=== PATIENT | female | born 2000 | race Two or more races ===

== ENCOUNTER 2024-05-09 18:16 | Observation (INO) | payer MEDICAID, SELFPAY ==
[2024-05-09 18:22] VITALS: BP 114/79; PULSE 75; RESP 16; RESP 99; TEMP 37.2; BMI 28.2
[2024-05-09 18:33] VITALS: BP 116/79; PULSE 75
--- NOTE | 2024-05-09 19:06 | XR_ITS ---
Examination: Complete OB ultrasound greater than 14 weeks Date and time of exam: May 09, 2024 1947 hrs. Indications: Onset pelvic pain back pain beginning last night Findings: Viable intrauterine single fetus with single amniotic sac presentation cephalic spine maternal right Cardiac motion 155 BPM Placenta posterior grade 2 Umbilical cord insertion 3 vessel seen Amniotic fluid index 16.9 cm Cervix 3.6 cm Right ovary obscured by bowel gas Left ovary 3.7 x 1.5 x 3.8 cm arterial flow. Composite estimated gestational age based on BPD, head circumference, abdominal circumference, femur length is 26 weeks 5 days Estimated weight 890 g. Survey of intracranial anatomy, spinal anatomy, abdominal anatomy, four-chamber heart performed with no abnormalities identified. Impression: Viable intrauterine gestation cephalic presentation.
[2024-05-09] MEDS: RINGERS LACTATED 1000 ML 1,000 ML 999 ML IV (19:15)
--- NOTE | 2024-05-09 19:36 | XR_ITS ---
Examination: OB Transvaginal ultrasound of the pelvis, Limited Technique: Transvaginal sonographic images pelvis performed using burnett scale imaging Exam date and time: May 09, 2024 2004 hrs. Indications: Labor evaluation, pelvic pain back pain, unknown cervical length Findings: Cervix 4.4 cm closed Impression: Cervix 4.4 cm closed.
[2024-05-09 19:37] VITALS: BP 128/83; PULSE 75
--- NOTE | 2024-05-09 19:37 | ESHP_ITS ---
Documentation for date of: 05/09/24 OB Labor/Induct. HPI History of Present Illness History of present illness: 23 yo at 25+5 (KIMO 08/14/2024) presents with painful contracts and back pain. complicated by: 1) Hyperthyroidism, well controlled not on medications Patient started having painful contractions today. No precipitating factors. No LOF, VB. Good movement. No other complications in this . No s/s of PEC. History of Present Adequate Care: Yes Review of Systems Review of Systems Narrative Review of Systems: Negative except noted above Past Medical History Surgical History OTHER SURGICAL HX: History of thyroid biopsy, benign Meds Home Medications and Allergies Allergies Allergy/AdvReac Type Severity Reaction Status Date / Time albuterol Allergy Wheezing Verified 02/21/20 19:11 OB Exam Physical Exam Vital signs: Temp Pulse Resp BP 99.0 F 75 16 116/79 05/09/24 18:22 05/09/24 18:33 05/09/24 18:22 05/09/24 18:33 Narrative: GEN: NAD RESP: Normal work of breathing ABD: Gravid, non tender EXT: no swelling or pain BSUS :cephalic normal DVP EFW 890g c/w 25w3d SVE: 1cm/50%/high FHT: Category 1 [place]: q5-10 minutes OB Assessment & Plan Assessment and Plan (1) labor in second trimester: Status: Acute (2) Hyperthyroidism: Status: Acute Additional Plan Additional Plan Comment: Concern for labor given cervical exam and contractions - Transfer to [facility] for L3 NICU given gestational age. At this time, she appears stable and not imminently delivering. However, I am concerned about her cervical exam given her nulliparity and gestational age and would recommend at least 24 hours observation to monitor for cervical change and labor. - BMTZ #1 for lung maturity - mag 6/2g for neuroprotection - ampicillin for GBS prophylaxis - indomethacin for tocolysis through steroid window, sucralfate - other routine PTL labs: UA/urine culture, GC/CT, utox - cephalic presentation, patient conseted for CD, blood transfusion and possible classical CS. understands risks, benefits, indications Hyperthyroidism: well controlled, asymptomatic, normal VS FWB: continuous monitoring, cephalic, EFW 890g, normal for GA/no FGR VTE PPX: none (1) labor in second trimester Qualifiers: labor delivery status: without delivery Qualified Code(s): O60.02 - labor without delivery, second trimester
--- NOTE | 2024-05-09 19:48 | ESDS_ITS ---
Transfer Discharge Sum: Prov Provider Date of admission: 05/09/24 18:16 Primary care physician: Physician No Primary/Family DS: Diagnosis Discharge Diagnosis (1) labor in second trimester: Status: Acute (2) Hyperthyroidism: Status: Acute (3) Abdominal pain: Status: Acute Problem List Completed Was Problem List Reviewed/Reconciled?: Yes Transfer Discharge Sum: Hosp Hospital Course Hospital course: Ms. CAMPBELL is a 23 year old at 25+5 presenting with concern for labor. is notable for well controlled hyperthyroidism (not on medications). She had one day of painful contractions and back pain and presented to triage. She was found to have contractions by palpation and on tocometry (every 5-10 minutes) that were painful. SVE 1cm. BSUS showed cephalic position, 890g (c/w 25+3), normal DVP. Given her cervical dilation and painful contractions, there was concern for labor. She was started on IVF with bolus, BMTZ for lung maturity, mag for neuroprotection, indomethacin for tocolysis through the steroid window, ampicillin for GBS prophylaxis in labor. Given her gestational age and non imminent delivery, she was recommended for transfer to higher level of care. Appropriate communication was made from our L&D to accepting unit. Patient was stable at 1cm on recheck. She was noted to have leaking of fluid and Amnisure test was negative. She as stable at the time of transfer from our facility with normal vital signs and reassuring FHT and no signs of imminent delivery en route. Time Spent with Patient Time attestation: Total time spent providing and/or coordinating transfer services: 60 min Exam Vital Signs Temp Pulse Resp BP 99.0 F 75 16 128/83 05/09/24 18:22 05/09/24 19:37 05/09/24 18:22 05/09/24 19:37 Narrative Exam Narrative: Gen: NAD RESP normal work of breathing ABD: gravid, non tender SVE: 1cm, unchanged over 2 exams Transfer Discharge Sum: Data Data Completed and Pending Completed studies during hospitalization: Examination: Complete OB ultrasound greater than 14 weeks Date and time of exam: May 09, 2024 1947 hrs. Indications: Onset pelvic pain back pain beginning last night Findings: Viable intrauterine single fetus with single amniotic sac presentation cephalic spine maternal right Cardiac motion 155 BPM Placenta posterior grade 2 Umbilical cord insertion 3 vessel seen Amniotic fluid index 16.9 cm Cervix 3.6 cm Right ovary obscured by bowel gas Left ovary 3.7 x 1.5 x 3.8 cm arterial flow. Composite estimated gestational age based on BPD, head circumference, abdominal circumference, femur length is 26 weeks 5 days Estimated weight 890 g. Survey of intracranial anatomy, spinal anatomy, abdominal anatomy, four-chamber heart performed with no abnormalities identified. Impression: Viable intrauterine gestation cephalic presentation. OB Transvaginal ultrasound of the pelvis, Limited Technique: Transvaginal sonographic images pelvis performed using burnett scale imaging Exam date and time: May 09, 20242003 hrs. Indications: Labor evaluation, pelvic pain back pain, unknown cervical length Findings: Cervix 4.4 cm closed Impression: Cervix 4.4 cm closed. Discharge Plan Problem List Was Problem List Reviewed/Reconciled?: Yes Plan Patient Disposition: [facility] Facility Pt Being Transferred to: Other-Specify in comment Service Needed for Transfer: Obstetrics Disposition Comment: [facility] Robert Patient condition on transfer: Stable Prescriptions/Referrals Prescriptions/Med Rec: No Action Vitamin 27 mg iron- 800 mcg tablet 1 tab PO DAILY Patient Comments: take 1 tablet by mouth once daily Referrals: No Primary/Family,Physician [Primary Care Provider] - Patient/Caregiver Discharge Instructions Print Language: Rwandan Stand Alone Forms: Kya Award Info., Patient Portal Info Letter Discharge Order Discharge Orders: Discharge (Routine); Ordered 05/09/24 Ordered By: Marli Ruvalcaba (1) labor in second trimester Qualifiers: labor delivery status: without delivery Qualified Code(s): O60.02 - labor without delivery, second trimester
[2024-05-09] MEDS: Magnesium Sulfate 4 GM Ivpb 4 GM/50 ML BAG IV (20:05)
[2024-05-09] MEDS: BETAMET ACET/BETAMET NA PH (Celestone) 6 MG/ML VIAL 12 MG IM (20:07)
[2024-05-09 20:08] LABS: Basophils % (Auto) 0 % (0-2.5); Eosinophils # (Auto) 0.1 Thou/mm3 (0.0-0.5); Eosinophils % (Auto) 1 % (0-10); Hematocrit 34.7 % (36.0-46.0); Hemoglobin 12.5 g/dL (12.0-16.0); Immature Granulocytes % (Auto) 0 % (0-0); Immature Granulocytes Auto 0.04 Thou/mm3 (0.00-0.00); Lymphocytes # (Auto) 1.6 Thou/mm3 (1.0-4.8); Lymphocytes % (Auto) 15 % (10-50); Mean Corpuscular Hemoglobin 32.8 pg (25.0-35.0); Mean Corpuscular Volume 91 fL (80-100); Monocytes # (Auto) 0.8 Thou/mm3 (0.0-0.8); Monocytes % (Auto) 8 % (0-12); Neutrophils % (Auto) 76 % (37-80); Nucleated Red Blood Cell % 0 /100 WBC (0); Platelet Count 209 Thou/mm3 (140-440); RDW Standard Deviation 40.3 fL (36.4-46.3); Red Blood Count 3.81 Miln/mm3 (4.00-5.20); White Blood Count 10.6 Thou/mm3 (3.6-11.0)
[2024-05-09 20:28] VITALS: BP 128/80; PULSE 85
[2024-05-09] MEDS: Magnesium Sulfate 2 GM Ivpb 2 GM/50 ML BAG IV (20:31)
[2024-05-09 20:33] VITALS: BP 123/82; PULSE 91
[2024-05-09 20:41] LABS: Collection Type, Urine Clean Catch; RBC,Urine 0 /hpf (0-3)
[2024-05-09] MEDS: Ampicillin Inj 2,000 MG in SODIUM CHLORIDE 0.9% (P) 100 ML 200 MG IV (20:41)
[2024-05-09] MEDS: MAGNESIUM SULF 20 GM IVPB 20 GM/500 ML BAG IV (20:44)
[2024-05-09 20:47] LABS: ROM Kit Lot # 57809118; ROM Swab Mixed By: CHADO; Swb Mxed in Solvent 1 min? Yes
[2024-05-09 20:48] LABS: Rupture of Fetal Membranes Negative (Negative)
[2024-05-09 20:57] LABS: Bacteria,Urine Rare; Bilirubin,Urine Negative (Negative); Blood,Urine Negative (Negative); Clarity,Urine Clear (Clear/Hazy); Color,Urine Lt-Yellow (Lt Yel-Yel); Glucose, Urine Negative (Negative); Ketones,Urine Negative (Negative); Leukocyte Esterase,Urine Positive (Negative); Nitrite,Urine Negative (Negative); PH,Urine 6.5 (5.0-7.0); Protein,Urine Negative (Neg - Trace); Specific Gravity,Urine 1.007 (1.001-1.035); Squamous Epithelial Cell,Urine 1 /hpf (0-5); Urobilinogen,Urine Negative mg/dL (0.0-1.0); WBC,Urine 4 /hpf (0-5)
[2024-05-09 21:03] VITALS: BP 130/82; PULSE 91
[2024-05-09 23:10] LABS: Syphilis Nonreactive (Nonreactive)
== END 2024-05-09 21:22 | disposition short-term general hospital (02) ==
PROVIDERS: Admitting Provider Obstetrics & Gynecology; Visit Provider Obstetrics & Gynecology
DX: O60.02 Preterm labor without delivery, second trimester (principal); O99.282 Endocrine, nutritional and metabolic diseases complicating pregnancy, second trimester; E05.90 Thyrotoxicosis, unspecified without thyrotoxic crisis or storm; Z3A.26 26 weeks gestation of pregnancy
CPT/HCPCS: 36415; 59899; 76805; 76817; 81001; 84112; 85025; 86780; 86850; 86900; 86901; 96372; J0290; J0702; J3475; J7120

== ENCOUNTER 2024-08-11 15:12 | Observation (INO) | payer MEDICAID, SELFPAY ==
[2024-08-11 15:18] VITALS: BMI 30.7
[2024-08-11 15:26] VITALS: BP 119/72; PULSE 102; RESP 16; TEMP 36.7; O2SAT 98
[2024-08-11 15:36] VITALS: BP 119/72; PULSE 102; RESP 16; TEMP 36.7
[2024-08-11 16:27] VITALS: BP 126/76; PULSE 90
== END 2024-08-11 17:10 | disposition home or self-care (01) ==
PROVIDERS: Admitting Provider Nurse Practitioner Women's Health; PCP Nurse Practitioner Women's Health; Visit Provider Nurse Practitioner Women's Health
DX: O47.1 False labor at or after 37 completed weeks of gestation (principal); Z3A.39 39 weeks gestation of pregnancy
CPT/HCPCS: 59025; 59899

== ENCOUNTER 2024-08-14 18:28 | Observation (INO) | payer MEDICAID, SELFPAY ==
[2024-08-14 18:30] VITALS: BMI 30.6
[2024-08-14 18:36] VITALS: RESP 16; RESP 99; TEMP 36.9
[2024-08-14 18:42] VITALS: BP 108/72; PULSE 104
[2024-08-14 18:45] VITALS: TEMP 36.9
== END 2024-08-14 19:30 | disposition home or self-care (01) ==
PROVIDERS: Admitting Provider Specialist; Visit Provider Specialist
DX: O47.1 False labor at or after 37 completed weeks of gestation (principal); Z3A.39 39 weeks gestation of pregnancy
CPT/HCPCS: 59025; 59899; G0378

== ENCOUNTER 2024-08-22 13:17 | Inpatient (IN) | payer MEDICAID, SELFPAY ==
[2024-08-22 13:17] VITALS: BP 103/68; PULSE 78; RESP 18; RESP 99; TEMP 36.9
[2024-08-22 13:31] VITALS: BP 103/68; PULSE 78
[2024-08-22 13:37] VITALS: BMI 30.5
--- NOTE | 2024-08-22 14:06 | XR_ITS ---
Examination: Complete OB ultrasound greater than 14 weeks Date and time of exam: August 22, 2024 1438 hours INDICATIONS: Patient in full-term labor today Findings: Viable intrauterine single fetus with single amniotic sac presentation Vertex spine maternal left Placenta right lateral grade 3 placental calcifications. Umbilical cord insertion seen Amniotic fluid index 5.2 cm Cervix ovary is obscured by bowel gas Composite estimated gestational age based on BPD, head circumference, abdominal circumference, femur length is 38 weeks 2 days Estimated weight 3452.7 g. Survey of intracranial anatomy, spinal anatomy, abdominal anatomy, four-chamber heart performed with no abnormalities identified. Impression: Viable intrauterine gestation vertex presentation Estimated gestational age 38 weeks 2 days Estimated weight 3452.7 g.
[2024-08-22 14:23] VITALS: BP 115/76; PULSE 75
[2024-08-22 14:51] LABS: Basophils # (Auto) 0.1 Thou/mm3 (0.0-0.2); Basophils % (Auto) 1 % (0-2.5); Eosinophils % (Auto) 0 % (0-10); Hematocrit 41.2 % (36.0-46.0); Hemoglobin 14.9 g/dL (12.0-16.0); Immature Granulocytes % (Auto) 1 % (0-0); Lymphocytes # (Auto) 1.3 Thou/mm3 (1.0-4.8); Lymphocytes % (Auto) 12 % (10-50); Mean Corpuscular HGB Conc 36.2 g/dl (31.0-37.0); Mean Corpuscular Hemoglobin 32.7 pg (25.0-35.0); Mean Corpuscular Volume 91 fL (80-100); Monocytes # (Auto) 0.7 Thou/mm3 (0.0-0.8); Monocytes % (Auto) 7 % (0-12); Neutrophils # (Auto) 8.6 Thou/mm3 (1.8-7.7); Neutrophils % (Auto) 80 % (37-80); Nucleated Red Blood Cell % 0 /100 WBC (0); Platelet Count 208 Thou/mm3 (140-440); Red Blood Count 4.55 Miln/mm3 (4.00-5.20); White Blood Count 10.8 Thou/mm3 (3.6-11.0)
[2024-08-22 15:40] VITALS: BP 110/70; PULSE 78; RESP 18; TEMP 37.1
[2024-08-22 15:43] LABS: Syphilis Nonreactive (Nonreactive)
[2024-08-22] MEDS: DINOPROSTONE 10 MG VAG.SUPP VAGINAL (16:20)
[2024-08-22 16:53] LABS: Amphetamine/Metham Scrn,Ur OB Negative (Negative); Benzoylecgonine Screen, Ur OB Negative (Negative); Opiate Screen,Urine OB Negative (Negative); THC Screen,Urine OB Negative (Negative)
[2024-08-22 19:23] VITALS: BP 125/72; PULSE 82; TEMP 36.8
--- NOTE | 2024-08-22 19:37 | PD.LDHP ---
Documentation for date of: 08/22/24 OB Labor/Induct. HPI History of Present Illness Chief complaint: contractions : 1 Para: 0 Term pregnancies: 0 pregnancies: 0 Living children: 0 History of Abortions: Spontaneous and Elective: 0 History of Vaginal deliveries: 0 History of sections: No History of : No Date of last menstrual period: 08/07/24 KIMO: 08/14/24 Gestational Age (weeks): 40 Gestational Age (days): 5 Gestational age based on last menstrual period: 2 History of present illness: 23-year-old 1 para 0 admit to labor and delivery with contractions that were strong since 10 in the morning. [facility] First visit 8 weeks. Last. November 07, 2023. Estimated due date August 14, 2024. Patient has had several ultrasounds at [facility] with maternal- medicine and normal anatomy was shown. Patient patient has a previous admission at 28 weeks with labor. History of hyperthyroid. Patient had also had a thyroid biopsy 2 years ago that was negative. Patient has not taken any thyroid medication during the . She reports that when she was started on levothyroxine and to other medication she had an allergic reaction and so she did not take it. No social habits. Surgery significant for thyroid biopsy. Patient is O+, antibody screen negative, RPR nonreactive, rubella immune, hepatitis B negative, hep C negative, HIV negative, GC and Chlamydia were negative. 1 hour Glucola was negative. She had a negative drug screen. GBS is negative. She had a negative NIPT, AFP was negative. Carrier screens negative History of Present Dating criteria: LMP confirmed by 1st trimester US Adequate Care: Yes Ultrasounds: normal 1st trimester US and normal mid trimester US Obstetrical complications: none Medical complications: other (hyperthyroid) Labs Labs: Negative: Hepatitis B, HIV, Chlamydia, Gonorrhea and Group Beta Strep Review of Systems Review of Systems Systems Reviewed: All systems reviewed, normal except as documented Past Medical History Surgical History SURGICAL: Negative Section Meds Home Medications and Allergies Home Medications ?Medication ?Instructions ?Recorded ?Confirmed ?Type vits no.130-ferrous fum 1 tab PO DAILY 05/09/24 08/22/24 History 27 mg iron-folic acid 800 mcg tablet ( Vitamin) Allergies Allergy/AdvReac Type Severity Reaction Status Date / Time albuterol Allergy Wheezing Verified 08/22/24 13:39 OB Exam Physical Exam Vital signs: Temp Pulse Resp BP 98.8 F 82 18 125/72 08/22/24 15:40 08/22/24 19:23 08/22/24 15:40 08/22/24 19:23 Narrative: Alert and oriented. Normal heart rate and rhythm. Lungs are clear. Gravid abdomen. Gynecoid pelvis. Estimated weight 3400 g. On ultrasound today presentation was vertex. INDERJIT was 5.2. Grade 3 placenta with calcifications. heart rate on admission category 1 with accelerations and moderate variability and contractions about every 5 minutes Detailed Labor and Delivery Exam Dilation (cm): 2 Effacement (%): thick Cervix position: posterior station: -3 Consistency: medium Presentation: Vertex Cervical ripeness score: 2 Membranes: intact Baseline heart rate: 145 monitor accelerations: 15x15 monitor decelerations: Variable (x1 and 1 late) FPC variability: Moderate (11-25) Contraction frequency (min): 4-5 Contraction duration (sec): 30 Tachysystole: No Contraction intensity: Mild OB Results Labs 08/22/24 14:11 Labs: Short CBC 08/22/24 Range/Units 14:11 WBC 10.8 (3.6-11.0) Thou/mm3 Hgb 14.9 (12.0-16.0) g/dL Hct 41.2 (36.0-46.0) % Plt Count 208 (140-440) Thou/mm3 OB Assessment & Plan Assessment and Plan (1) Normal labor and delivery: Status: Acute Additional Plan Induction method: other (cervidel) Plan: induction, anticipate NVD and consult MD farrar
[2024-08-22 21:12] VITALS: BP 129/84; PULSE 86
[2024-08-22] MEDS: PROMETHAZINE INJ 25 MG/ML VIAL 12.5 MG IM (21:37)
[2024-08-22] MEDS: MEPERIDINE INJ 50 MG/ML VIAL IM (21:37)
[2024-08-23] VITALS (178 sets, daily range): BP systolic 99–145; BP diastolic 55–92; PULSE 78–167; RESP 18–22; TEMP 3–39.1; O2SAT 89–100
--- NOTE | 2024-08-23 07:35 | PD.LDPN ---
Documentation for date of: 08/23/24 OB Labor Progress Note Pain Control Pain control: epidural Pelvic Exam Dilation (cm): 9 Effacement (%): 90% station: -1 Amniotic membrane status: Ruptured Contractions Contraction frequency: 3 Contraction intensity: Moderate Status status: Category ll Assessment and Plan Assessment: active labor Plan OB labor note: continuous present management
--- NOTE | 2024-08-23 08:17 | PD.LDPN ---
Documentation for date of: 08/23/24 OB Labor Progress Note Pain Control Pain control: epidural Pelvic Exam Dilation (cm): 9.5 Effacement (%): 90% station: -1 Amniotic membrane status: Ruptured Contractions Monitor mode: External Contraction frequency: 2-3 Contraction duration: 40-60 Contraction phase: Contraction Contraction intensity: Moderate Status status: Category ll Assessment and Plan Assessment: active labor Plan OB labor note: continuous present management Comments: Pt is almost complete, comfortable with the epidural Allow pt to labor down Anticipate
[2024-08-23] MEDS: RINGERS LACTATED 500 ML 500 ML 999 ML IV (09:55)
--- NOTE | 2024-08-23 10:22 | PD.LDPN ---
Documentation for date of: 08/23/24 OB Labor Progress Note Pelvic Exam Dilation (cm): 10 Effacement (%): 100 station: +1 Amniotic membrane status: Ruptured Contractions Monitor mode: External Contraction frequency: 2-3 Contraction duration: 40-60 Contraction phase: Contraction Contraction intensity: Moderate Status status: Category ll Assessment and Plan Assessment: other (2nd stage ) Plan OB labor note: continuous present management Comments: Test pushed with pt she did well, RN to push with her CNM on the unit awaiting delivery Anticipate
[2024-08-23] MEDS: MINERAL OIL 30 ML UDC TOP (10:45)
[2024-08-23] MEDS: OXYTOCIN in NS 20 units 20 UNIT/1,000 ML BAG 999 UNIT IV (11:05)
--- NOTE | 2024-08-23 11:23 | PD.LDDELS ---
Data (Jimenez) Data Hx Section: No Maternal Blood Type: O Pos Rubella Titre: Positive RPR: Non-reactive Labs: Negative: RPR, Hepatitis B, HIV, Chlamydia, Gonorrhea and Group Beta Strep and Unknown: Herpes Type 1 and Herpes Type 2 : 1 Para: 0 Term: 0 : 0 Livin : 0 Delivery Data (Jimenez) Labor Data Stimulated/Augmented: No Induction: No ROM Date: 08/23/24 ROM Time: 06:05 Rupture Type: SROM Amniotic Fluid: Clear Delivery Data EDC: 08/14/24 EDC calculated by:: LMP/early US confirmation Labor Onset Stage 1 Date: 08/23/24 Labor Onset Stage 1 Time: 03:22 Labor Onset Stage 2 Date: 08/23/24 Labor Onset Stage 2 Time: 06:05 Delivery Date: 08/23/24 Delivery Time: 10:57 Gestational age (weeks): 41 Gestational age (days): 2 Placenta Delivery Date: 08/23/24 Placenta Delivery Time: 11:02 Delivered by: Aura Prince Delivery nurse: Dia Carcamo Research And Development Director at delivery: No Support person(s) at delivery: FOB Other staff at delivery: Nursery Nurse Other staff at delivery: Beth Goncalves Delivery Method Delivery: Vaginal Delivery Type: Spontaneous Presentation: Vertex Position: OA Anesthesia Type Primary Anesthesia: Epidural Delivery Room Medications Other Intrapartum Medications: No Placenta Placenta Delivery: Spontaneous Placenta Cultures Obtained: No Placenta Sent for Examination: No Cord Sample: Cord Blood Obtained Episiotomy Episiotomy: None Lacerations #1: Vaginal: 1st degree Labial: left Perineal repair Sutures used for repair: 3.0 Vicryl (CT) and 4.0 Vicryl (SH) EBL Estimated blood loss (ml): 300 Umbilical Cord Umbilical Vessels: 3 Nuchal Cord: x1 Loosely Body Cord: Not Applicable Additional Procedures Patient pushed for about 30 minutes and had an of a viable male delivered. head delivered with a loose nuchal cord easily reduced after delivery. The anterior shoulder delivered with gentle downward traction subsequent deliver the posterior shoulder and the body without complications. Infant placed on mother's abdomen. Vigorous cry upon delivery. Delayed cord clamping for about 2 minutes and then cord was clamped and cut by FOB. Cord blood obtained. Three-vessel cord noted. Placenta expelled spontaneously and intact. Patient sustained a vaginal laceration that was repaired using a 3-[address] suture and she had a left labial laceration which was repaired using a 4-0 Vicryl on an SH suture. Perineum intact. Excellent hemostasis achieved after vigorous fundal massage and removal of clots from the posterior fornix. EBL 300. Mother and baby stable, skin to skin and bonding in LDR. [place] Data (Jimenez) [place] Data Infant Gender: Male Weight Grams: 3600 1 Minute Total: 9 5 Minute Total: 9
[2024-08-23] MEDS: TRANEXAMIC ACID 1,000 MG IVPB 1,000 MG/100 ML BAG 200 MG IV (11:35)
[2024-08-23] MEDS: ACETAMINOPHEN IVPB 1,000 MG/100 ML VIAL 250 MG IV (12:23)
[2024-08-23] MEDS: Ampicillin Inj 2,000 MG in SODIUM CHLORIDE 0.9% (POP) 100 ML 100 MG IV ×3 (12:24→23:58)
[2024-08-23] MEDS: CLINDAMYCIN 900MG IVPB 50 ML 100 MG IV ×2 (14:20→21:57)
[2024-08-23] MEDS: IBUPROFEN TAB 400 MG TABLET 800 MG PO (15:06)
--- NOTE | 2024-08-23 16:11 | EKG_ITS ---
[facility] Test Date: 2024-08-23 Pat Name: DONTAE CAMPBELL Department: Room: S464A Gender: Female Manager Of Creative Services: ANDI : 2000 Requested By: Aura Prince Order Number: [id number] Reading MD: Aura Prince Measurements Intervals [place] Rate: 79 P: 34 CO: 131 QRS: 20 QRSD: 96 T: 11 QT: 337 QTc: 386 Interpretive Statements SINUS RHYTHM LOW QRS VOLTAGE IN PRECORDIAL LEADS INCOMPLETE RIGHT BUNDLE BRANCH BLOCK No previous ECG available for comparison /[id number]/[email or web address]/[id number].pdf
--- NOTE | 2024-08-23 16:11 | XR_ITS ---
Examination: PA lateral chest 2 views TECHNIQUE: Upright PA and lateral chest 2 views Exam date and time: August 23, 2024 at 1745 hours INDICATIONS: Chest tightness today. FINDINGS: Normal heart size Lungs are clear. The osseous structures are intact IMPRESSION: No active disease
--- NOTE | 2024-08-23 16:18 | PC.NURSE ---
1610 Called SHANNON Chavarria to inform her of patient's recent vitals, HR 157 with complaint of chest tightness. Pt BP 124/75, temp 98.4, o2 99%, pain 0. Fundus firm, midline, scant bleeding. Aura ordered chest xray, ekg, and gent pharmacy to dose.
--- NOTE | 2024-08-23 17:48 | PC.NURSE ---
1250 Pt up to bathroom without difficulty. While pt sitting on toilet, tape removed from back. Epidural tubing removed from pt back. catheter intact, dark tip shown to pt. Pressure applied No bleeding or problems noted
[2024-08-23] MEDS: GENTAMICIN/NS 120 MG IVPB 120 MG/100 ML BAG 200 MG IV ×3 (17:52→20:18)
[2024-08-23 18:09] LABS: Basophils % (Auto) 0 % (0-2.5); Eosinophils % (Auto) 0 % (0-10); Hematocrit 32.8 % (36.0-46.0); Hemoglobin 11.6 g/dL (12.0-16.0); Immature Granulocytes % (Auto) 1 % (0-0); Immature Granulocytes Auto 0.11 Thou/mm3 (0.00-0.00); Lymphocytes # (Auto) 1.2 Thou/mm3 (1.0-4.8); Lymphocytes % (Auto) 7 % (10-50); Mean Corpuscular HGB Conc 35.4 g/dl (31.0-37.0); Mean Corpuscular Hemoglobin 32.6 pg (25.0-35.0); Mean Corpuscular Volume 92 fL (80-100); Monocytes # (Auto) 1.7 Thou/mm3 (0.0-0.8); Monocytes % (Auto) 9 % (0-12); Neutrophils # (Auto) 14.9 Thou/mm3 (1.8-7.7); Neutrophils % (Auto) 83 % (37-80); Nucleated Red Blood Cell % 0 /100 WBC (0); Platelet Count 171 Thou/mm3 (140-440); RDW Standard Deviation 42.9 fL (36.4-46.3); Red Blood Count 3.56 Miln/mm3 (4.00-5.20); White Blood Count 17.9 Thou/mm3 (3.6-11.0)
[2024-08-24] VITALS: BP 114/75; PULSE 91; RESP 18; TEMP 36.6; O2SAT 98
[2024-08-24 01:54] LABS: Basophils % (Auto) 0 % (0-2.5); Eosinophils # (Auto) 0.1 Thou/mm3 (0.0-0.5); Eosinophils % (Auto) 0 % (0-10); Hematocrit 31.5 % (36.0-46.0); Hemoglobin 11.2 g/dL (12.0-16.0); Immature Granulocytes % (Auto) 1 % (0-0); Immature Granulocytes Auto 0.07 Thou/mm3 (0.00-0.00); Lymphocytes # (Auto) 1.6 Thou/mm3 (1.0-4.8); Lymphocytes % (Auto) 11 % (10-50); Mean Corpuscular HGB Conc 35.6 g/dl (31.0-37.0); Mean Corpuscular Hemoglobin 33.4 pg (25.0-35.0); Mean Corpuscular Volume 94 fL (80-100); Monocytes # (Auto) 1.1 Thou/mm3 (0.0-0.8); Monocytes % (Auto) 8 % (0-12); Neutrophils # (Auto) 11.6 Thou/mm3 (1.8-7.7); Neutrophils % (Auto) 80 % (37-80); Nucleated Red Blood Cell % 0 /100 WBC (0); Platelet Count 153 Thou/mm3 (140-440); RDW Standard Deviation 44.5 fL (36.4-46.3); Red Blood Count 3.35 Miln/mm3 (4.00-5.20); White Blood Count 14.5 Thou/mm3 (3.6-11.0)
[2024-08-24 03:48] VITALS: BP 104/66; PULSE 93; RESP 16; TEMP 36.6; O2SAT 97
[2024-08-24] MEDS: CLINDAMYCIN 900MG IVPB 50 ML 100 MG IV (05:35)
[2024-08-24] MEDS: Ampicillin Inj 2,000 MG in SODIUM CHLORIDE 0.9% (POP) 100 ML 100 MG IV (06:12)
--- NOTE | 2024-08-24 07:14 | ESDS_ITS ---
DS: Providers Provider Date of admission: 08/22/24 14:01 Primary care physician: Physician No Primary/Family Admitting Provider: Peewee Castillo MD Attending Provider on Admission: Edwin Chiu MD Consults: 08/23/24 14:41 Referral Routine Comment: Attending Provider on DC: Aura Prince CNM Discharging Provider: Aura Prince CNM Anticipated date of discharge: 08/24/24 DS: Diagnosis Discharge Diagnosis (1) Normal spontaneous vaginal delivery: Status: Acute (2) Encounter for care of lactating mother: Status: Acute (3) Normal labor: Status: Acute Problem List Completed Was Problem List Reviewed/Reconciled?: Yes Summary/Hosp Course Brief History: 23-year-old 1 para 0 admit to labor and delivery with contractions that were strong since 10 in the morning. Patient has been followed at [facility]. First visit 8 weeks. Last. November 07, 2023. Estimated due date August 14, 2024. Patient has had several ultrasounds at [facility] with maternal- medicine and normal anatomy was shown. Patient patient has a previous admission at 28 weeks with labor. History of hyperthyroid. Patient had also had a thyroid biopsy 2 years ago that was negative. Patient has not taken any thyroid medication during the . She reports that when she was started on levothyroxine and to other medication she had an allergic reaction and so she did not take it. No social habits. Surgery significant for thyroid biopsy. Patient is O+, antibody screen negative, RPR nonreactive, rubella immune, hepatitis B negative, hep C negative, HIV negative, GC and Chlamydia were negative. 1 hour Glucola was negative. She had a negative drug screen. GBS is negative. She had a negative NIPT, AFP was negative. Carrier screens negative 08/23/24:Patient pushed for about 30 minutes and had an of a viable male delivered. Infant head delivered with a loose nuchal cord easily reduced after delivery. The anterior shoulder delivered with gentle downward traction subsequent deliver the posterior shoulder and the body without complications. Infant placed on mother's abdomen. Vigorous cry upon delivery. Delayed cord clamping for about 2 minutes and then cord was clamped and cut by FOB. Cord blood obtained. Three-vessel cord noted. Placenta expelled spontaneously and intact. Patient sustained a vaginal laceration that was repaired using a 3-[address] suture and she had a left labial laceration which was repaired using a 4-0 Vicryl on an SH suture. Perineum intact. Excellent hemostasis achieved after vigorous fundal massage and removal of clots from the posterior f ornix. EBL 300. Mother and baby stable, skin to skin and bonding in LDR. 08/24/24: PPD#1 patient is stable and afebrile doing well and . Denies dizziness shortness of breath. Voiding with no problems. Breast-feeding infant. No complaints. Discharge instructions given. Patient to follow-up with Aura Prince CNM in 3 weeks Peripartum Data Delivery Method: Normal Vaginal Delivery Episiotomy Description: None Laceration Description: yes and see Delivery Summary complications: none [place] 1: Gender: Male Disposition of : home Status at Discharge Cognitive/behavioral status at discharge: Alert and oriented x3 Functional status at discharge: independent ambulation Overall status at discharge: patient is progressing back to baseline Time Spent with Patient Time attestation: Total time spent providing and/or coordinating discharge services: Time spent: Greater than 30 minutes Exam Vital Signs Temp Pulse Resp BP Pulse Ox O2 Del Method 98.4 F 157 H 18 124/75 97 Room Air 08/23/24 16:00 08/23/24 16:00 08/23/24 16:00 08/23/24 16:00 08/23/24 16:00 08/23/24 16:00 Constitutional Constitutional: no acute distress Routine HEENT Exam Head: Present normocephalic and atraumatic Eye: Present EOMI, PERRL and normal accommodation ENT: Present mucous membranes moist Routine Neck Exam Neck: Present supple, full ROM and trachea midline Routine Respiratory Exam Respiratory: Present chest non-tender, lungs clear, normal breath sounds and no resp distress Routine Cardiovascular Exam Cardiovascular: Present RRR Routine Abdominal Exam Abdominal: Present soft and normoactive bowel sounds; Absent tenderness or distended Comments: Uterus non-tender Fundus firm Routine Exam Patient deferred: external exam Routine Extremities Exam Extremities: Present full ROM, pulses intact and normal capillary refill; Absent calf tenderness or Lazarus's sign Routine Back/Spine/Pelvis Exam Back/Spine: Present full ROM Routine Skin Exam Skin: Present intact, dry and warm Routine Neurological Exam Neurological: Present alert, oriented X3 and CN II-XII intact Routine Psychiatric Exam Psychiatric: Present normal affect and normal thought process Discharge Plan Plan Patient Disposition: HOME (Self Care) Patient condition on transfer: Stable Prescriptions/Referrals Prescriptions/Med Rec: New docusate sodium [Colace] 100 mg capsule 100 mg PO BID Qty: 60 0RF ibuprofen 600 mg tablet 600 mg PO Q6H PRN (Reason: pain) Qty: 90 0RF lanolin 50 % ointment 1 applic topical TID PRN (Reason: skin irritation) Qty: 15 0RF Continued Vitamin 27 mg iron- 800 mcg tablet 1 tab PO DAILY Patient Comments: take 1 tablet by mouth once daily Referrals: No Primary/Family,Physician [Primary Care Provider] - Patient/Caregiver Discharge Instructions Meds to Beds: No Discharge Activity: activity as tolerated Other Discharge Activity Instructions:: Follow-up with Aura Prince CNM or SHANNON Velázquez in 3 weeks Education Materials: After a Vaginal , : Caring for Yourself Print Language: South African Stand Alone Forms: Kya Award Info., Patient Portal Info Letter Discharge Order Discharge Orders: Discharge (Routine); Ordered 08/24/24 Ordered By: Aura Prince Planned Discharge Date 08/24/24
[2024-08-24 07:20] VITALS: BP 114/77; PULSE 79; RESP 20; TEMP 36.4
[2024-08-24] MEDS: DOCUSATE SOD 100 MG CAPSULE PO (08:33)
[2024-08-24] MEDS: PRENATAL VITAMIN/FE FUM/FA TABLET 1 TAB PO (08:33)
--- NOTE | 2024-08-24 10:24 | PC.NURSE ---
0707: SULLY OLEA CNM AT NURSES STATION [facility] DC ANTIBIOTICS AND PATIENT WILL DC HOME
[2024-08-24 11:08] VITALS: BP 108/76; PULSE 87; RESP 20; TEMP 36.7; O2SAT 98
[2024-08-24] MEDS: IBUPROFEN TAB 400 MG TABLET 800 MG PO ×2 (11:16)
== END 2024-08-24 12:35 | disposition home or self-care (01) | DRG 560 ==
LOC: S4SX 08-23 07:34 → S4NX 08-23 13:59
PROVIDERS: Advanced Practice Midwife; Nurse Practitioner Women's Health; Admitting Provider Obstetrics & Gynecology; Referring Provider Obstetrics & Gynecology; Visit Provider Obstetrics & Gynecology
DX: O99.284 Endocrine, nutritional and metabolic diseases complicating childbirth (principal); E05.90 Thyrotoxicosis, unspecified without thyrotoxic crisis or storm; Z37.0 Single live birth; Z3A.40 40 weeks gestation of pregnancy; O69.81X0 Labor and delivery complicated by cord around neck, without compression, not applicable or unspecified; O70.0 First degree perineal laceration during delivery
CPT/HCPCS: 36415; 71046; 76805; 80170; 80307; 85025; 86780; 86850; 86900; 86901; 93005; J0131; J0290; J1580; J2175; J2550; J2590; J2795; J3010; J3490; J7120; S0077; A9270; J0736